=== PATIENT | female | born 1975 | race African-American/Black ===

== ENCOUNTER 2018-04-07 04:29 | Inpatient (IN) | payer MEDICAID, OTHER ==
[~2018-04-07] VITALS: Ht 160 cm; Wt 96.6 kg
[~2018-04-07 04:29] MED LIST: BENA20TA10 PO
[2018-04-07 07:41] LABS: BASOPHILS % 0.6 % (0.0-2.0); EOSINOPHILS % 4.5 % (0.0-5.0); HEMATOCRIT. 43.4 % (36.0-48.0); HEMOGLOBIN. 14.4 g/dL (12.0-16.0); LYMPHOCYTES % 32.8 % (20.0-50.0); MEAN CORPUSCULAR HEMOGLOBIN 28.2 pg (28.0-32.0); NEUTROPHILS % 51.1 % (40.0-76.0); PLATELET 222 x1000/uL (130-400); RED BLOOD CELL COUNT 5.11 mill/uL (4.2-5.4); RED CELL DISTRIBUTION WIDTH 14.9 % (11.6-14.6)
[2018-04-07] MEDS ORDERED: ALBUTEROL (0.083%) 2.5MG/3ML NEB HHN STA (07:43)
[2018-04-07] MEDS ORDERED: IPRATROPIUM BROMIDE (0.02%) 0.5MG/2.5ML NEB HHN STA (07:43)
[2018-04-07] MEDS ORDERED: METHYLPREDNISOLONE SOD SUCC 125 MG/2 ML VIAL IV STA (07:43)
[2018-04-07] MEDS ORDERED: BENAZEPRIL 10MG TABLET PO ONE (07:45)
[2018-04-07 07:46] LABS: CHLORIDE 104 mEq/L (98-107)
[2018-04-07 07:50] LABS: INR 1.1; PARTIAL THROMBOPLASTIN TIME 28.2 sec (23.4-31.0); PROTHROMBIN TIME 11.1 sec (9.1-11.1)
[2018-04-07 08:08] LABS: HCG SCREEN NEGATIVE
[2018-04-07] MEDS ORDERED: ASPIRIN 81MG TABLET PO ONE (08:15)
[2018-04-07] MEDS ORDERED: ENOXAPARIN 100MG/ML SYR SUBCUT ONE (08:15)
[2018-04-07] MEDS ORDERED: NITROGLYCERIN OINT 1GM/INCH UDPKT TD ONE (08:15)
[2018-04-07] MEDS ORDERED: CLONIDINE 0.1MG TABLET PO SCH (09:00)
[2018-04-07 10:28] LABS: *AMPHETAMINES SCREEN URINE NEGATIVE (NEGATIVE); *BARBITURATES SCREEN URINE NEGATIVE (NEGATIVE); *BENZODIAZEPINES SCREEN URINE NEGATIVE (NEGATIVE)
[2018-04-07 10:29] LABS: *COCAINE SCREEN URINE NEGATIVE (NEGATIVE); METHADONE URINE SCREEN NEGATIVE (NEGATIVE); OPIATES URINE SCREEN NEGATIVE (NEGATIVE); PHENCYCLIDINE URINE SCREEN NEGATIVE (NEGATIVE)
[2018-04-07 10:30] LABS: CANNABINOID URINE SCREEN NEGATIVE (NEGATIVE)
[2018-04-07] MEDS ORDERED: IPRATROPIUM/ALBUTEROL 0.5-3(2.5)MG/3ML NEB INH PRN (11:30)
[2018-04-07] MEDS ORDERED: HYDROCODONE/ACETAMINOPHEN 5/325MG TABLET PO PRN (11:30)
[2018-04-07] MEDS ORDERED: ONDANSETRON HCL 4MG/2ML INJ IV PRN (11:30)
[2018-04-07] MEDS ORDERED: ACETAMINOPHEN 325MG TABLET PO PRN (11:30)
[2018-04-07 12:29] LABS: PHOSPHORUS 2.6 mg/dL (2.5-4.9)
[2018-04-07 15:03] LABS: CLARITY URINE TURBID (CLEAR); COLOR URINE YELLOW (YELLOW); KETONES URINE NEGATIVE (NEGATIVE); LEUKOCYTE ESTERASE URINE NEGATIVE (NEGATIVE); NITRITE URINE NEGATIVE (NEGATIVE); OCCULT BLOOD URINE NEGATIVE (NEGATIVE); PH URINE 6.5 (4.5-8.0); PROTEIN URINE TRACE (NEGATIVE); SPECIFIC GRAVITY URINE 1.024 (1.005-1.030)
[2018-04-07 15:29] VITALS: BP 165/99
[2018-04-07] MEDS ORDERED: BENA20TA10 PO (15:29)
[2018-04-07 16:35] VITALS: BP 176/103
[2018-04-07] MEDS: ASPIRIN 81MG EC TABLET PO SCH (16:49)
[2018-04-07] MEDS: CLONIDINE 0.1MG TABLET PO SCH (16:50)
[2018-04-07] MEDS: NICOTINE 7MG PATCH TD SCH (17:23)
[2018-04-07 17:52] VITALS: BP 153/91
[2018-04-07 20:00] VITALS: BP 147/79
[2018-04-07] MEDS: AMLODIPINE 5MG TABLET PO SCH (20:33)
[2018-04-08] VITALS: BP 150/78
[2018-04-08] MEDS: CLONIDINE 0.1MG TABLET PO SCH ×4 (00:09→23:44)
[2018-04-08 04:00] VITALS: BP 123/71
[2018-04-08 08:00] VITALS: BP 146/88
[2018-04-08 08:08] LABS: BASOPHILS % 0.2 % (0.0-2.0); HEMATOCRIT. 42.9 % (36.0-48.0); HEMOGLOBIN. 14.1 g/dL (12.0-16.0); LYMPHOCYTES % 14.3 % (20.0-50.0); MEAN CORPUSCULAR HEMOGLOBIN 28.1 pg (28.0-32.0); MEAN CORPUSCULAR VOLUME 85.4 fL (81.0-99.0); MEAN PLATELET VOLUME 8.9 fl (7.4-10.4); MONOCYTES % 4.7 % (2.0-8.0); NEUTROPHILS % 80.8 % (40.0-76.0); PLATELET 250 x1000/uL (130-400); RED BLOOD CELL COUNT 5.03 mill/uL (4.2-5.4); RED CELL DISTRIBUTION WIDTH 15.1 % (11.6-14.6)
[2018-04-08 08:18] LABS: CHLORIDE 102 mEq/L (98-107)
[2018-04-08] MEDS: AMLODIPINE 5MG TABLET PO SCH ×2 (08:43→20:47)
[2018-04-08] MEDS: ASPIRIN 81MG EC TABLET PO SCH (08:43)
[2018-04-08] MEDS: NICOTINE 7MG PATCH TD SCH (08:51)
[2018-04-08 12:00] VITALS: BP 124/75
[2018-04-08] MEDS: METHYLPREDNISOLONE SOD SUCC 125 MG/2 ML VIAL IV SCH ×3 (12:31→20:47)
[2018-04-08] MEDS: BENZONATATE 100MG CAPSULE PO SCH ×2 (15:50→23:43)
[2018-04-08] MEDS: LORATADINE 10MG TABLET PO SCH (15:50)
[2018-04-08 16:00] VITALS: BP 139/84
[2018-04-08 20:00] VITALS: BP 147/81
[2018-04-08] MEDS: IPRATROPIUM/ALBUTEROL 0.5-3(2.5)MG/3ML NEB INH SCH (21:30)
[2018-04-09] VITALS: BP 148/87
[2018-04-09] MEDS: IPRATROPIUM/ALBUTEROL 0.5-3(2.5)MG/3ML NEB INH SCH ×4 (01:08→12:27)
[2018-04-09 04:00] VITALS: BP 148/82
[2018-04-09] MEDS: BENZONATATE 100MG CAPSULE PO SCH ×2 (06:26→14:52)
[2018-04-09] MEDS: METHYLPREDNISOLONE SOD SUCC 125 MG/2 ML VIAL IV SCH ×2 (06:26→14:41)
[2018-04-09 07:04] LABS: HEMOGLOBIN. 13.6 g/dL (12.0-16.0); MEAN CORPUSCULAR HEMOGLOBIN 27.9 pg (28.0-32.0); MEAN CORPUSCULAR VOLUME 86.1 fL (81.0-99.0); MONOCYTES % 1.1 % (2.0-8.0); NEUTROPHILS % 87.9 % (40.0-76.0); PLATELET 248 x1000/uL (130-400); RED BLOOD CELL COUNT 4.88 mill/uL (4.2-5.4)
[2018-04-09 07:59] LABS: CHLORIDE 103 mEq/L (98-107)
[2018-04-09 08:00] VITALS: BP 131/74
[2018-04-09] MEDS: CLONIDINE 0.1MG TABLET PO SCH (09:05)
[2018-04-09] MEDS: LORATADINE 10MG TABLET PO SCH (09:05)
[2018-04-09] MEDS: ASPIRIN 81MG EC TABLET PO SCH (09:05)
[2018-04-09] MEDS: AMLODIPINE 5MG TABLET PO SCH (09:06)
[2018-04-09] MEDS: NICOTINE 7MG PATCH TD SCH (09:06)
[2018-04-09 12:00] VITALS: BP 149/78
[2018-04-09] MEDS ORDERED: AMLO5TAB88 PO (12:01)
[2018-04-09] MEDS ORDERED: CLON0.1T14 PO (12:01)
[2018-04-09] MEDS ORDERED: CLAR10 PO (12:01)
[2018-04-09] MEDS ORDERED: BENZ100C86 PO (12:01)
[2018-04-09] MEDS ORDERED: MED4 MT (12:01)
[2018-04-09] MEDS ORDERED: ASPI-1158 PO (12:01)
[2018-04-09 12:05] VITALS: BP 149/78
== END 2018-04-09 16:20 | disposition home or self-care (01) | DRG 140 ==
LOC: ER 04:29 → 7WST 08:11 → ENRESERV 11:05
PROVIDERS: ADMIT Internal Medicine; ATTEND Internal Medicine
DX: J44.1 Chronic obstructive pulmonary disease with (acute) exacerbation (principal); J96.00 Acute respiratory failure, unspecified whether with hypoxia or hypercapnia; I11.0 Hypertensive heart disease with heart failure; I50.9 Heart failure, unspecified; J44.0 Chronic obstructive pulmonary disease with (acute) lower respiratory infection; I16.1 Hypertensive emergency; J20.9 Acute bronchitis, unspecified; E66.9 Obesity, unspecified; F17.210 Nicotine dependence, cigarettes, uncomplicated; Z68.37 Body mass index [BMI] 37.0-37.9, adult; Z79.899 Other long term (current) drug therapy; Z71.6 Tobacco abuse counseling; Z98.891 History of uterine scar from previous surgery
CPT/HCPCS: 36415; 71045; 80048; 80061; 80305; 83036; 83735; 83880; 84100; 84443; 84484; 84703; 85379; 93005; 93306; 94640; 96374; 99285; J1650; J2930; J7611; J7620

== ENCOUNTER 2020-05-15 10:32 | Emergency (ER) | payer MEDICAID ==
[~2020-05-15] VITALS: Ht 157.5 cm; Wt 96.0 kg
[~2020-05-15 10:32] MED LIST changes: +AMLO5TAB88 PO; +ASPI-1406 PO; -BENA20TA10 PO; +BENZ100C86 PO; +CLAR10 PO; +CLON0.1T14 PO; +MED4 MT
[2020-05-15] MEDS ORDERED: LABETALOL HCL 100MG TABLET PO ONE (11:00)
[2020-05-15] MEDS ORDERED: CLON0.1T MT (13:07)
[2020-05-15 13:16] VITALS: BP 180/120
== END 2020-05-15 13:22 | disposition home or self-care (01) ==
LOC: ER 10:38
DX: I10 Essential (primary) hypertension (principal); Z79.899 Other long term (current) drug therapy; Z88.0 Allergy status to penicillin; Z79.82 Long term (current) use of aspirin
CPT/HCPCS: 99283

== ENCOUNTER 2022-03-01 20:29 | Emergency (ER) | payer MEDICAID ==
[~2022-03-01] VITALS: Ht 167.6 cm; Wt 91.0 kg
[~2022-03-01 20:29] MED LIST changes: +CLON0.1T MT
[2022-03-01] MEDS ORDERED: LIDOCAINE 5% PATCH TOP SCH (22:45)
[2022-03-01 23:32] VITALS: BP 177/112
== END 2022-03-01 23:49 | disposition home or self-care (01) ==
LOC: ER 20:29
DX: Z00.00 Encounter for general adult medical examination without abnormal findings (principal); I10 Essential (primary) hypertension; J45.909 Unspecified asthma, uncomplicated; M54.12 Radiculopathy, cervical region; Z87.828 Personal history of other (healed) physical injury and trauma; Z88.0 Allergy status to penicillin
CPT/HCPCS: 99283

== ENCOUNTER 2022-06-02 10:11 | Emergency (ER) | payer MEDICAID ==
[~2022-06-02] VITALS: Ht 170.2 cm; Wt 100.0 kg
[2022-06-02] MEDS ORDERED: PREDNISONE 20MG TABLET PO ONE (10:45)
[2022-06-02] MEDS ORDERED: ALBUTEROL (0.5%) 2.5MG/0.5ML NEB HHN ONE (10:45)
[2022-06-02] MEDS ORDERED: P20 MT (11:41)
[2022-06-02] MEDS ORDERED: ALBU6.7H3 INH (11:41)
[2022-06-02] MEDS ORDERED: EPIN0.3P3 IM (11:42)
[2022-06-02] MEDS ORDERED: ALBUTEROL (0.083%) 2.5MG/3ML NEB ONE ×2 (11:48→13:06)
[2022-06-02] MEDS ORDERED: IPRATROPIUM BROMIDE (0.02%) 0.5MG/2.5ML NEB HHN ONE (12:00)
[2022-06-02] MEDS ORDERED: AMLODIPINE 5MG TABLET PO ONE (12:15)
[2022-06-02] MEDS ORDERED: CLONIDINE 0.3MG TABLET PO ONE (12:15)
[2022-06-02] MEDS ORDERED: ALBU05 NEB (12:51)
[2022-06-02 14:00] VITALS: BP 158/82
== END 2022-06-02 14:00 | disposition home or self-care (01) ==
LOC: ER 10:29
DX: T78.49XA Other allergy, initial encounter (principal); R05.9 Cough, unspecified; I10 Essential (primary) hypertension; J45.909 Unspecified asthma, uncomplicated; F17.210 Nicotine dependence, cigarettes, uncomplicated; Z88.0 Allergy status to penicillin; Z91.018 Allergy to other foods; X58.XXXA Exposure to other specified factors, initial encounter
CPT/HCPCS: 94640; 99284; J7512; Z7610

== ENCOUNTER 2023-12-18 21:13 | Inpatient (IN) | payer BC, MEDICAID ==
[~2023-12-18] VITALS: Ht 157.5 cm; Wt 95.3 kg
[~2023-12-18 21:13] MED LIST changes: +ALBU05 NEB; +ALBU6.7H3 INH; +EPIN0.3P3 IM; -MED4 MT; +METH4TAB95 MT; +P20 MT
[2023-12-19 00:57] LABS: EOSINOPHILS % 0.5 % (0.0-5.0); HEMATOCRIT. 46.5 % (36.0-48.0); HEMOGLOBIN. 15.4 g/dL (12.0-16.0); LYMPHOCYTES % 27.6 % (20.0-50.0); MEAN CORPUSCULAR HEMOGLOBIN 30.2 pg (28.0-32.0); MEAN CORPUSCULAR HGB CONC 33.1 g/dL (31.0-37.0); MEAN CORPUSCULAR VOLUME 91.2 fL (81.0-99.0); MEAN PLATELET VOLUME 8.6 fl (7.4-10.4); MONOCYTES % 7.8 % (2.0-8.0); NEUTROPHILS % 63.1 % (40.0-76.0); PLATELET 206 x1000/uL (130-400); RED CELL DISTRIBUTION WIDTH 17.4 % (11.6-14.6); WHITE BLOOD COUNT 9.6 x1000/uL (4.5-11.0)
[2023-12-19 01:05] LABS: CHLORIDE 103 mEq/L (98-107); SODIUM 138 mEq/L (136-145)
[2023-12-19 01:06] LABS: CARBON DIOXIDE 27 mEq/L (21-32)
[2023-12-19 01:07] LABS: CALCIUM 10.3 mg/dL (8.7-10.4)
[2023-12-19 01:11] LABS: CREATININE 1.4 mg/dL (0.6-1.0); GLUCOSE 104 mg/dL (70-105); UREA NITROGEN BLOOD 23 mg/dL (9-23)
[2023-12-19 01:13] LABS: ALANINE AMINOTRANSFERASE 43 IU/L (10-49); ALBUMIN 4.4 g/dL (3.2-4.8); ASPARTATE AMINOTRANSFERASE 61 IU/L (<34)
[2023-12-19 01:14] LABS: BILIRUBIN TOTAL 1.5 mg/dL (0.1-1.0); PROTEIN TOTAL 7.7 g/dL (6.0-8.3)
[2023-12-19 01:32] LABS: HCG SCREEN NEGATIVE
[2023-12-19 01:40] LABS: TROPONIN I HIGH SENSITIVITY 559 ng/L (3.0-34)
[2023-12-19 02:24] LABS: CLARITY URINE TURBID (CLEAR); COLOR URINE DARK YELLOW (YELLOW); GLUCOSE URINE NEGATIVE (NEGATIVE); KETONES URINE TRACE (NEGATIVE); LEUKOCYTE ESTERASE URINE 1+ (NEGATIVE); NITRITE URINE NEGATIVE (NEGATIVE); OCCULT BLOOD URINE 1+ (NEGATIVE); PROTEIN URINE 3+ (NEGATIVE); SPECIFIC GRAVITY URINE 1.028 (1.005-1.030)
[2023-12-19 04:20] LABS: BACTERIA URINE 2+; SQUAMOUS EPITHELIAL CELL URINE 2+ /lpf (RARE/1+)
[2023-12-19] MEDS: FUROSEMIDE 40MG/4ML VIAL IVP NR (04:26)
[2023-12-19] MEDS: FUROSEMIDE 20MG/2ML VIAL IVP ONE (04:26)
[2023-12-19] MEDS: DOCUSATE SODIUM 100MG CAPSULE PO NR (04:28)
[2023-12-19] MEDS: ASPIRIN 81MG EC TABLET PO NR (04:28)
[2023-12-19] MEDS: DOCUSATE SODIUM 100MG CAPSULE PO ONE (04:32)
[2023-12-19] MEDS: ASPIRIN 81MG EC TABLET PO ONE (04:32)
[2023-12-19 08:00] VITALS: BP 164/98; PULSE 97; RESP 20; TEMP 36.7516; TEMP 37.11408; O2SAT 99
[2023-12-19] MEDS ORDERED: DOCUSATE SODIUM 100MG CAPSULE PO PRN (09:45)
[2023-12-19] MEDS ORDERED: ACETAMINOPHEN 325MG TABLET PO PRN ×2 (09:45)
[2023-12-19] MEDS ORDERED: MAGNESIUM/ALUMINUM HYDROXIDE/SIMETHICONE 30ML UDC PO PRN (09:45)
[2023-12-19] MEDS ORDERED: ONDANSETRON HCL 4MG/2ML INJ IV PRN (09:45)
[2023-12-19] MEDS ORDERED: GUAIFENESIN 200MG/10ML SUGAR FREE UDC PO PRN (09:45)
[2023-12-19] MEDS ORDERED: FUROSEMIDE 40MG/4ML VIAL IVP SCH ×2 (10:45→16:00)
[2023-12-19 11:18] LABS: CLARITY URINE CLEAR (CLEAR); COLOR URINE YELLOW (YELLOW); GLUCOSE URINE NEGATIVE (NEGATIVE); KETONES URINE NEGATIVE (NEGATIVE); LEUKOCYTE ESTERASE URINE NEGATIVE (NEGATIVE); NITRITE URINE NEGATIVE (NEGATIVE); OCCULT BLOOD URINE NEGATIVE (NEGATIVE); PH URINE 5.5 (4.5-8.0); PROTEIN URINE NEGATIVE (NEGATIVE); SPECIFIC GRAVITY URINE 1.006 (1.005-1.030); UROBILINOGEN URINE 0.2 E.U./dL (0.2-1.0)
[2023-12-19 11:39] VITALS: BP 170/101; PULSE 97; RESP 19; TEMP 36.6696; O2SAT 99
[2023-12-19] MEDS: CLONIDINE 0.1MG TABLET PO PRN (11:40)
[2023-12-19 11:59] LABS: *AMPHETAMINES SCREEN URINE NEGATIVE (NEGATIVE); *BARBITURATES SCREEN URINE NEGATIVE (NEGATIVE); *BENZODIAZEPINES SCREEN URINE NEGATIVE (NEGATIVE); *COCAINE SCREEN URINE NEGATIVE (NEGATIVE); CANNABINOID URINE SCREEN NEGATIVE (NEGATIVE); ECSTASY MDMA SCREEN URINE NEGATIVE (NEGATIVE); METHADONE URINE SCREEN NEGATIVE (NEGATIVE); OPIATES URINE SCREEN NEGATIVE (NEGATIVE); PHENCYCLIDINE URINE SCREEN NEGATIVE (NEGATIVE)
[2023-12-19 13:00] LABS: CREATINE KINASE MB FRACTION 1.5 ng/mL (0.5-3.6)
[2023-12-19] MEDS: AMLODIPINE 5MG TABLET PO SCH ×2 (13:20→22:29)
[2023-12-19] MEDS: ENOXAPARIN 30MG/0.3ML SYR SUBCUT SCH (13:23)
[2023-12-19 13:29] LABS: HEPATITIS B SURFACE ANTIGEN NEGATIVE (Negative)
[2023-12-19 13:41] LABS: HIV 1/2 AB P24AG Negative (Negative)
[2023-12-19 13:50] LABS: HEPATITIS A AB IGM NEGATIVE (Negative); HEPATITIS B CORE AB IGM NEGATIVE (Negative); HEPATITIS C AB NON REACTIVE (Neg) (Negative)
[2023-12-19] MEDS: HYDRALAZINE 20MG/ML VIAL IV NR (15:31)
[2023-12-19 16:00] VITALS: BP 164/109; PULSE 98; RESP 20; TEMP 36.78072; O2SAT 99
[2023-12-19] MEDS: FUROSEMIDE 40MG/4ML VIAL IVP SCH (17:12)
[2023-12-19] MEDS: HYDRALAZINE HCL 50MG TABLET PO SCH (17:13)
[2023-12-19 17:17] LABS: D-DIMER 1.26 mg/L FEU (<0.50); INR 1.4; PROTHROMBIN TIME 14.9 sec (9.6-11.0)
[2023-12-19] MEDS ORDERED: AZIL1TAB2 PO (18:17)
[2023-12-19 19:18] LABS: CREATININE URINE RANDOM 51.5 mg/dL
[2023-12-19 19:26] LABS: CREATINE KINASE MB FRACTION 1.7 ng/mL (0.5-3.6)
[2023-12-19 20:00] VITALS: BP 129/70; PULSE 80; RESP 18; TEMP 36.44736; O2SAT 100
[2023-12-19] MEDS: ATORVASTATIN CALCIUM 20MG TABLET PO SCH (21:00)
[2023-12-19 22:57] VITALS: PULSE 98; RESP 20; O2SAT 99
[2023-12-19] MEDS: IPRATROPIUM/ALBUTEROL 0.5-3(2.5)MG/3ML NEB HHN PRN (22:57)
[2023-12-20] VITALS (7 sets, daily range): BP systolic 118–166; BP diastolic 70–99; PULSE 94–99; RESP 18–20; TEMP 36.33624–36.89184; O2SAT 97–100
[2023-12-20 05:58] LABS: CHLORIDE 102 mEq/L (98-107); POTASSIUM 3.4 mEq/L (3.5-5.1); SODIUM 139 mEq/L (136-145)
[2023-12-20 05:59] LABS: CALCIUM 9.5 mg/dL (8.7-10.4); CARBON DIOXIDE 29 mEq/L (21-32)
[2023-12-20 06:04] LABS: CREATININE 1.3 mg/dL (0.6-1.0); GLUCOSE 89 mg/dL (70-105); TRIGLYCERIDE 80 mg/dL (0-150); UREA NITROGEN BLOOD 31 mg/dL (9-23)
[2023-12-20 06:05] LABS: LDL CHOLESTEROL 64 mg/dL (5-100)
[2023-12-20 06:06] LABS: CHOLESTEROL 115 mg/dL (<200); HDL CHOLESTEROL 39 mg/dL (>65); THYROID STIMULATING HORMONE 1.39 uIU/mL (0.55-4.78)
[2023-12-20 06:26] LABS: BASOPHILS % 0.8 % (0.0-2.0); EOSINOPHILS % 0.9 % (0.0-5.0); HEMATOCRIT. 45.3 % (36.0-48.0); HEMOGLOBIN. 14.6 g/dL (12.0-16.0); LYMPHOCYTES % 26.6 % (20.0-50.0); MEAN CORPUSCULAR HEMOGLOBIN 29.2 pg (28.0-32.0); MEAN CORPUSCULAR HGB CONC 32.3 g/dL (31.0-37.0); MEAN CORPUSCULAR VOLUME 90.5 fL (81.0-99.0); MEAN PLATELET VOLUME 9.2 fl (7.4-10.4); MONOCYTES % 8.5 % (2.0-8.0); NEUTROPHILS % 63.2 % (40.0-76.0); PLATELET 191 x1000/uL (130-400); RED BLOOD CELL COUNT 5.01 mill/uL (4.2-5.4); RED CELL DISTRIBUTION WIDTH 17.1 % (11.6-14.6); WHITE BLOOD COUNT 8.6 x1000/uL (4.5-11.0)
[2023-12-20] MEDS: POTASSIUM CHLORIDE 20MEQ TABLET SR PO NR (08:16)
[2023-12-20 08:56] LABS: TROPONIN I HIGH SENSITIVITY 468 ng/L (3.0-34)
[2023-12-20] MEDS ORDERED: ASPIRIN 81MG TABLET PO SCH (09:00)
[2023-12-20] MEDS: HYDRALAZINE 20MG/ML VIAL IV NR (09:30)
[2023-12-20] MEDS ORDERED: ONDA-239 PO (10:35)
[2023-12-20] MEDS ORDERED: PROT40 PO (10:35)
[2023-12-20] MEDS: MAGNESIUM 2 G PREMIX 50 ML IV SCH (11:10)
[2023-12-20] MEDS: HYDRALAZINE HCL 50MG TABLET PO SCH (12:49)
[2023-12-20 18:35] LABS: TOTAL VOLUME 24 HR 4375 mL
[2023-12-21 09:06] LABS: COMPLEMENT C3 118 mg/dL (82-167); COMPLEMENT C4 26 mg/dL (12-38)
[2023-12-21 13:10] LABS: ANTI-NUCLEAR ANTIBODIES DIRECT Negative (Negative)
[2023-12-23 17:06] LABS: ANTI-MYELOPEROXIDASE AB 3.7 units (0.0-0.9); ANTI-PROTEINASE 3 ABS < 0.2 units (0.0-0.9)
[2023-12-25 13:11] LABS: ATYPICAL P-ANCA <1:20 titer (Neg:<1:20); CYTOPLASMIC C-ANCA <1:20 titer (Neg:<1:20); PERINUCLEAR P-ANCA <1:20 titer (Neg:<1:20)
== END 2023-12-20 18:30 | disposition home or self-care (01) | DRG 190 ==
LOC: ER 21:13 → 8WST 12-19 02:16 → EDBEDREQTM 12-19 02:24 → EDBEDREQ 12-19 02:24
PROVIDERS: ADMIT Internal Medicine; ATTEND Internal Medicine
DX: I21.4 Non-ST elevation (NSTEMI) myocardial infarction (principal); J96.01 Acute respiratory failure with hypoxia; I31.39 Other pericardial effusion (noninflammatory); I13.0 Hypertensive heart and chronic kidney disease with heart failure and stage 1 through stage 4 chronic kidney disease, or unspecified chronic kidney disease; N17.9 Acute kidney failure, unspecified; R18.8 Other ascites; I50.9 Heart failure, unspecified; F17.210 Nicotine dependence, cigarettes, uncomplicated; J44.89 Other specified chronic obstructive pulmonary disease; D25.9 Leiomyoma of uterus, unspecified; N18.9 Chronic kidney disease, unspecified; K76.9 Liver disease, unspecified; E66.01 Morbid (severe) obesity due to excess calories; E80.6 Other disorders of bilirubin metabolism; K59.09 Other constipation; Z79.899 Other long term (current) drug therapy; Z88.0 Allergy status to penicillin; Z98.891 History of uterine scar from previous surgery; Z91.199 Patient's noncompliance with other medical treatment and regimen due to unspecified reason; Z68.41 Body mass index [BMI] 40.0-44.9, adult
CPT/HCPCS: 36415; 71045; 74176; 76770; 80048; 80053; 80061; 80305; 81003; 82550; 82553; 82570; 83520; 83735; 83880; 84156; 84443; 84478; 84484; 84703; 85025; 85379; 86038; 86160; 86256; 86705; 86709; 87340; 93005; 93970; 94640; 99285; J0360; J1650; J1940; J3475